=== PATIENT | female | born 1970 | race Caucasian/White ===

== ENCOUNTER 2019-10-19 13:08 | Emergency (ER) | payer SELFPAY ==
[2019-10-19] MEDS ORDERED: Ondansetron ODT 4 MG TAB ONE (14:00)
--- NOTE | 2019-10-19 14:01 | RAD ---
2 view chest: [10/19/2019] Comparison:07/16/2013 HISTORY: Nausea, vomiting, and diarrhea, cough FINDINGS: Diffuse increased linear interstitial density is noted with pulmonary hyperinflation sugges ting COPD, stable when compared to prior imaging. No pneumothorax or pleural fluid is seen. There is no focal consolidation or alveolar edema. IMPRESSION: Interstitial opacity with hyperinflation as above.
== END 2019-10-19 15:12 | disposition home or self-care (01) ==
LOC: ERS 13:08
DX: B34.9 Viral infection, unspecified (principal); Z87.891 Personal history of nicotine dependence; J44.9 Chronic obstructive pulmonary disease, unspecified; Z79.899 Other long term (current) drug therapy
CPT/HCPCS: 71046; 87804; Q0162